=== PATIENT | female | born 2000 | race Two or more races ===

== ENCOUNTER 2019-12-13 10:48 | Observation (INO) | payer MEDICAID, OTHER ==
[~2019-12-13] VITALS: Ht 162.6 cm; Wt 98.4 kg
[2019-12-13 11:32] LABS: Basophils # (auto) 0 10 ^3/uL (0-0.2); Basophils % (auto) 0.4 % (0.0-2.0); Eosinophils # (auto) 0.1 10 ^3/uL (0-0.8); Mean Corpuscular Volume 71.7 fL (80.0-100.0); Monocytes # (auto) 0.5 10 ^3/uL (0-1.3); White Blood Cell 6.6 10^3/uL (4.4-10.8)
[2019-12-13 11:34] LABS: Hemoglobin 9.9 g/dL (12.2-16.2); Lymphocytes # (auto) 1.1 10 ^3/uL (0.4-5.4); Mean Corpuscular Hemoglobin 22.8 pg (28.0-32.0); Mean Corpuscular Hgb Conc. 31.8 g/dL (32.0-36.0); Monocytes % (auto) 7.9 % (0.0-12.0); Neutrophils # (auto) 4.8 10 ^3/uL (1.6-8.6); Neutrophils % (auto) 73.7 % (37.0-80.0); Nucleated Red Blood Cells % 0.1 %; Platelet Count (auto) 232 10^3/uL (140-450); Red Blood Cells 4.32 10^6/uL (4.0-5.20); Red Cell Distribution Width 19.2 % (11.8-14.3)
[2019-12-13] MEDS ORDERED: FOLI400T15 PO (11:37)
[2019-12-13] MEDS ORDERED: PREN-96 PO (11:37)
[2019-12-13 11:50] LABS: INR 0.9 (0.9-1.15); Partial Thromboplastin Time 24.2 sec (23.64-32.05)
[2019-12-13 11:55] LABS: Albumin 2.3 g/dL (3.4-5.0); Calcium 8.4 mg/dL (8.5-10.1); Potassium 4.7 mmol/L (3.5-5.1)
[2019-12-13 11:59] LABS: BUN/Creatinine Ratio 24.6; Bilirubin, Total 0.2 mg/dL (0.2-1.0); Total Protein 6.5 g/dL (6.4-8.2); Uric Acid 5.2 mg/dL (2.6-6.0)
[2019-12-13 12:15] LABS: Urine Bacteria FEW /hpf (None Seen); Urine Blood Negative /uL (Negative); Urine Mucus FEW (None Seen); Urine Specific Gravity 1.029 (1.001-1.035); Urine WBC 51 /hpf (0 - 5)
[2019-12-13] MEDS ORDERED: BETAMETHASONE ACET (6MG/ML) 5ML VIAL IM ONE (13:00)
== END 2019-12-13 13:35 | disposition home or self-care (01) | DRG 566 ==
LOC: LDRP 10:48
PROVIDERS: ADMIT Specialist; ATTEND Specialist
DX: O13.3 Gestational [pregnancy-induced] hypertension without significant proteinuria, third trimester (principal); Z3A.37 37 weeks gestation of pregnancy
CPT/HCPCS: 36415; 59025; 80053; 81001; 81002; 84550; 85025; 85610; 85730; G0378; J0702

== ENCOUNTER 2019-12-16 09:20 | Inpatient (IN) | payer MEDICAID ==
[~2019-12-16] VITALS: Ht 162.6 cm; Wt 97.5 kg
[~2019-12-16 09:20] MED LIST: FOLI400T15 PO; PREN-96 PO
[2019-12-16 10:23] LABS: Basophils # (auto) 0 10 ^3/uL (0-0.2); Eosinophils # (auto) 0.1 10 ^3/uL (0-0.8); Eosinophils % (auto) 0.9 % (0.0-7.0); Hemoglobin 9.8 g/dL (12.2-16.2); Monocytes # (auto) 0.6 10 ^3/uL (0-1.3); Neutrophils # (auto) 4.4 10 ^3/uL (1.6-8.6)
[2019-12-16 10:24] LABS: Basophils % (auto) 0.3 % (0.0-2.0); Hematocrit 31.5 % (36.0-46.0); Lymphocytes # (auto) 1.2 10 ^3/uL (0.4-5.4); Lymphocytes % (auto) 19.2 % (10.0-50.0); Mean Corpuscular Hemoglobin 22.7 pg (28.0-32.0); Mean Corpuscular Hgb Conc. 31.3 g/dL (32.0-36.0); Mean Corpuscular Volume 72.6 fL (80.0-100.0); Monocytes % (auto) 9.6 % (0.0-12.0); Platelet Count (auto) 200 10^3/uL (140-450); Red Blood Cells 4.34 10^6/uL (4.0-5.20); White Blood Cell 6.4 10^3/uL (4.4-10.8)
[2019-12-16 10:27] LABS: Red Cell Distribution Width 20.2 % (11.8-14.3)
[2019-12-16 10:28] LABS: Urine Bacteria FEW /hpf (None Seen); Urine Blood Negative /uL (Negative); Urine Mucus FEW (None Seen); Urine WBC 2 /hpf (0 - 5)
[2019-12-16 10:44] LABS: Albumin 2.3 g/dL (3.4-5.0); Calcium 8.3 mg/dL (8.5-10.1); Potassium 4.4 mmol/L (3.5-5.1)
[2019-12-16 10:47] LABS: BUN/Creatinine Ratio 17.7; Bilirubin, Total 0.2 mg/dL (0.2-1.0); Total Protein 6.5 g/dL (6.4-8.2); Uric Acid 5.3 mg/dL (2.6-6.0)
[2019-12-16 10:54] LABS: Protein, Urine 333.4 mg/dL (0.0-11.9)
[2019-12-16 10:55] LABS: 24 Hr. Total Protein, Urine 9168.5 mg/24 Hr (<149.1)
[2019-12-16 11:06] LABS: INR 0.92 (0.9-1.15); Partial Thromboplastin Time 23.7 sec (23.64-32.05)
[2019-12-16] MEDS ORDERED: LACT. RINGERS/OXYTOCIN 20UNITS 1,000 ML IV SCH (11:28)
[2019-12-16] MEDS ORDERED: CARBOPROST TROMETHAMINE 250 MCG/1ML VIAL IM PRN (11:30)
[2019-12-16] MEDS ORDERED: WITCH HAZEL-GLYCERIN PAD TOP PRN (11:30)
[2019-12-16] MEDS ORDERED: PHISODERM TOP SOLN 240ML BTL TOP PRN (11:30)
[2019-12-16] MEDS ORDERED: LIDOCAINE 2%HCL (LOCAL ANESTH.) INJ 20ML MDV ID PRN (11:30)
[2019-12-16] MEDS ORDERED: DERMOPLAST 60ML BOTTLE TOP PRN (11:30)
[2019-12-16] MEDS: LACTATED RINGER'S 1,000 ML IV SCH ×2 (11:45→19:28)
[2019-12-16 11:54] LABS: Amphetamine Screen, Urine NEGATIVE (NEGATIVE); Barbiturate Scree,Urine NEGATIVE (NEGATIVE); Benzodiazephine Screen, Urine NEGATIVE (NEGATIVE); Cannabinoid Screen, Urine NEGATIVE (NEGATIVE); Cocaine Screen, Urine NEGATIVE (NEGATIVE); Opiate Scree,Urine NEGATIVE (NEGATIVE); Phencyclidine Screen, Urine NEGATIVE (NEGATIVE)
[2019-12-16] MEDS ORDERED: PENICILLIN G POT 5MIL/D5 50ML 50 ML IV ONE (12:00)
[2019-12-16] MEDS: miSOPROStol 50 MCG per PRE-CUT 1/2 TAB PO PRN ×3 (12:20→20:15)
[2019-12-16] MEDS: PENICILLIN G POTASSIUM 2,500,000 UNITS in D5W 5% 50 ML IV SCH ×2 (16:00→20:02)
[2019-12-17] MEDS: PENICILLIN G POTASSIUM 2,500,000 UNITS in D5W 5% 50 ML IV SCH ×2 (00:19→04:43)
[2019-12-17] MEDS ORDERED: LACT. RINGERS/OXYTOCIN 20UNITS 1,000 ML IV SCH (00:40)
[2019-12-17] MEDS ORDERED: LACTATED RINGER'S 1,000 ML IV ONE (00:43)
[2019-12-17] MEDS ORDERED: NALOXONE HCL 0.4 MG/ML VIAL IV ONE ×2 (00:45→02:15)
[2019-12-17] MEDS ORDERED: TERBUTALINE SULFATE 1 MG/ML 1ML VIAL SC ONE (00:45)
[2019-12-17] MEDS ORDERED: ePHEDrine SULFATE 50 MG/ML AMP IV ONE ×2 (00:45→02:15)
[2019-12-17] MEDS ORDERED: fentaNYL 200mCg/100ml W ROPIVA 100 ML EPI SCH ×3 (00:45→02:15)
[2019-12-17] MEDS ORDERED: SODIUM CHLORIDE 0.9% 500 ML IV PRN (02:14)
[2019-12-17] MEDS ORDERED: BUTORPHANOL TARTRATE 2 MG/1 ML VIAL IV PRN (06:30)
[2019-12-17] MEDS ORDERED: BUTORPHANOL TARTRATE 2 MG/1 ML VIAL IM ONE (06:30)
[2019-12-17] MEDS ORDERED: miSOPROStol 100 mcg TAB ONE (09:02)
[2019-12-17] MEDS ORDERED: CARBOPROST TROMETHAMINE 250 MCG/1ML VIAL IM ONE (09:02)
[2019-12-17] MEDS ORDERED: miSOPROStol 50 MCG per PRE-CUT 1/2 TAB PR PRN (10:00)
[2019-12-17] MEDS ORDERED: miSOPROStol 50 MCG per PRE-CUT 1/2 TAB SL PRN (10:00)
[2019-12-17 13:18] VITALS: BP 142/77
[2019-12-17] MEDS: ceFAZolin 1GM/50ML 50 ML IV SCH (13:56)
[2019-12-17] MEDS ORDERED: IBUPROFEN 600 MG TAB PO PRN (14:30)
[2019-12-17 15:00] VITALS: BP 124/88
[2019-12-17] MEDS: ACETAMINOPHEN 325 MG TAB PO PRN (15:04)
[2019-12-17 18:30] VITALS: BP 128/68
[2019-12-17 23:30] VITALS: BP 120/65
[2019-12-18] MEDS: ceFAZolin 1GM/50ML 50 ML IV SCH ×2 (01:39→09:47)
[2019-12-18] MEDS: ACETAMINOPHEN 325 MG TAB PO PRN (01:44)
[2019-12-18 03:30] VITALS: BP 127/60
[2019-12-18 06:32] VITALS: BP 122/68
[2019-12-18 10:42] VITALS: BP 132/77
[2019-12-18 15:30] VITALS: BP 134/87
[2019-12-18 19:00] VITALS: BP 130/64
[2019-12-18 23:00] VITALS: BP 131/77
[2019-12-19 03:00] VITALS: BP 128/70
[2019-12-19 06:30] VITALS: BP 136/78
[2019-12-19 10:41] VITALS: BP 138/77
== END 2019-12-19 10:48 | disposition home or self-care (01) | DRG 560 ==
LOC: LDRP 09:20 → OBSVTOIN 11:24 → LDRP 11:25
PROVIDERS: ADMIT Obstetrics & Gynecology; ATTEND Obstetrics & Gynecology
PROC: 10E0XZZ Delivery of Products of Conception, External Approach (ICD-10-PCS; principal; 2019-12-17)
PROC: 0KQM0ZZ Repair Perineum Muscle, Open Approach (ICD-10-PCS; 2019-12-17)
DX: O14.94 Unspecified pre-eclampsia, complicating childbirth (principal); K83.1 Obstruction of bile duct; O12.14 Gestational proteinuria, complicating childbirth; O26.62 Liver and biliary tract disorders in childbirth; Z37.0 Single live birth; Z3A.37 37 weeks gestation of pregnancy; Z11.59 Encounter for screening for other viral diseases; O70.1 Second degree perineal laceration during delivery; O69.81X0 Labor and delivery complicated by cord around neck, without compression, not applicable or unspecified
CPT/HCPCS: 36415; 59025; 59409; 62282; 76818; 80053; 80307; 81001; 81002; 84112; 84156; 84550; 85025; 85610; 85730; 86592; 86850; 86900; 86901; 96365; 96366; G0378; J0690; J2540; J2590; J7060

== ENCOUNTER 2020-11-05 15:31 | Inpatient (IN) | payer MEDICAID ==
[~2020-11-05] VITALS: Ht 165.1 cm; Wt 81.3 kg
[2020-11-05 16:06] LABS: Urine Bacteria FEW /hpf (None Seen); Urine Blood Negative /uL (Negative); Urine Mucus FEW (None Seen); Urine Specific Gravity 1.033 (1.001-1.035); Urine WBC 4 /hpf (0 - 5)
[2020-11-05] MEDS ORDERED: SODIUM CHLORIDE 0.9% 1,000 ML IV ONE ×2 (16:45→20:45)
[2020-11-05] MEDS ORDERED: ONDANSETRON HCL 4 MG/2 ML VIAL IV ONE ×2 (16:45→20:45)
[2020-11-05 17:33] LABS: Basophils # (auto) 0 10 ^3/uL (0-0.2); Eosinophils # (auto) 0.1 10 ^3/uL (0-0.8); Monocytes # (auto) 0.3 10 ^3/uL (0-1.3)
[2020-11-05 17:36] LABS: Basophils % (auto) 0.8 % (0.0-2.0); Eosinophils % (auto) 1.5 % (0.0-7.0); Hematocrit 38.5 % (36.0-46.0); Hemoglobin 12.5 g/dL (12.2-16.2); Lymphocytes % (auto) 22.9 % (10.0-50.0); Mean Corpuscular Hemoglobin 24.7 pg (28.0-32.0); Mean Corpuscular Hgb Conc. 32.5 g/dL (32.0-36.0); Monocytes % (auto) 6.8 % (0.0-12.0); Neutrophils # (auto) 3.1 10 ^3/uL (1.6-8.6); Platelet Count (auto) 285 10^3/uL (140-450); Red Blood Cells 5.07 10^6/uL (4.0-5.20); Red Cell Distribution Width 15.6 % (11.8-14.3); White Blood Cell 4.6 10^3/uL (4.4-10.8)
[2020-11-05 17:54] LABS: Albumin 3.7 g/dL (3.4-5.0); Anion Gap 7 (5-15); Blood Urea Nitrogen 11 mg/dL (7-18); Calcium 8.6 mg/dL (8.5-10.1); Carbon Dioxide 22 mmol/L (21-32); Chloride 112 mmol/L (98-107); Glucose 88 mg/dL (74-106); Lipase 80 U/L (73-393); Magnesium 2.3 mg/dL (1.6-2.6); Potassium 3.7 mmol/L (3.5-5.1); Sodium 141 mmol/L (136-145)
[2020-11-05 18:03] LABS: Alanine Aminotransferase 854 U/L (13-56); Alkaline Phosphatase 137 U/L (45-117); Aspartate Aminotransferase 741 U/L (15-37); BUN/Creatinine Ratio 14.5; Bilirubin, Total 1.8 mg/dL (0.2-1.0); GFR African American 124 mL/min; GFR Non-African American 102 mL/min; Total Protein 7.1 g/dL (6.4-8.2)
[2020-11-05 18:04] LABS: INR 1.07 (0.9-1.15); Partial Thromboplastin Time 24.4 sec (23.0-31.2)
[2020-11-05] MEDS ORDERED: MORPHINE SULF INJ 2 MG/ML SYRINGE 1ML IV ONE (20:45)
[2020-11-05] MEDS ORDERED: cefTRIAXone 1GM/50ML D5W 50 ML IV ONE (21:00)
[2020-11-05] MEDS ORDERED: ONDANSETRON HCL 4 MG/2 ML VIAL IV PRN (21:30)
[2020-11-05] MEDS ORDERED: MORPHINE SULF INJ 2 MG/ML SYRINGE 1ML IV PRN (21:30)
[2020-11-05 23:00] VITALS: BP 103/53
[2020-11-05] MEDS: D5W/SOD CHL 0.45% 1,000 ML IV SCH (23:23)
[2020-11-06 05:00] VITALS: BP 96/80
[2020-11-06 05:33] LABS: Basophils # (auto) 0 10 ^3/uL (0-0.2); Lymphocytes # (auto) 1.7 10 ^3/uL (0.4-5.4); Monocytes # (auto) 0.4 10 ^3/uL (0-1.3); Nucleated Red Blood Cells % 0.2 %
[2020-11-06 05:35] LABS: Basophils % (auto) 0.9 % (0.0-2.0); Eosinophils # (auto) 0.3 10 ^3/uL (0-0.8); Eosinophils % (auto) 6.1 % (0.0-7.0); Hematocrit 38.2 % (36.0-46.0); Hemoglobin 12.7 g/dL (12.2-16.2); Lymphocytes % (auto) 37.8 % (10.0-50.0); Mean Corpuscular Hemoglobin 25.2 pg (28.0-32.0); Mean Corpuscular Hgb Conc. 33.2 g/dL (32.0-36.0); Mean Corpuscular Volume 75.7 fL (80.0-100.0); Monocytes % (auto) 9.5 % (0.0-12.0); Neutrophils % (auto) 45.7 % (37.0-80.0); Platelet Count (auto) 256 10^3/uL (140-450); Red Blood Cells 5.05 10^6/uL (4.0-5.20); Red Cell Distribution Width 15.7 % (11.8-14.3); White Blood Cell 4.5 10^3/uL (4.4-10.8)
[2020-11-06 05:52] LABS: Albumin 3.5 g/dL (3.4-5.0); Calcium 8.7 mg/dL (8.5-10.1)
[2020-11-06 05:56] LABS: BUN/Creatinine Ratio 11.6; Bilirubin, Total 1.6 mg/dL (0.2-1.0); Total Protein 6.9 g/dL (6.4-8.2)
[2020-11-06] MEDS: D5W/SOD CHL 0.45% 1,000 ML IV SCH ×2 (07:30→17:30)
[2020-11-06 09:00] VITALS: BP 101/60
[2020-11-06 12:30] VITALS: BP 108/56
[2020-11-06 16:25] VITALS: BP 102/54
[2020-11-06 21:46] VITALS: BP 108/58
== END 2020-11-07 00:55 | disposition short-term general hospital (02) ==
LOC: ER 15:31 → OVERFLOW 21:20 → WEST WING 22:45
PROVIDERS: ADMIT Hospitalist; ATTEND Hospitalist
DX: K80.70 Calculus of gallbladder and bile duct without cholecystitis without obstruction (principal); F41.9 Anxiety disorder, unspecified; N39.0 Urinary tract infection, site not specified; Z20.822 Contact with and (suspected) exposure to COVID-19; R74.01 Elevation of levels of liver transaminase levels
CPT/HCPCS: 36415; 74176; 76705; 78226; 80053; 81001; 81025; 82140; 83605; 83690; 83735; 84484; 84702; 85025; 85610; 85730; 87426; 96361; 96374; G0378; J0696; J2405

== ENCOUNTER 2020-12-03 10:19 | Inpatient (IN) | payer MEDICAID ==
[~2020-12-03] VITALS: Ht 162.6 cm; Wt 85.3 kg
[2020-12-03] MEDS ORDERED: PANTOPRAZOLE 40 MG/10 ML VIAL INJ IV STA (10:23)
[2020-12-03 11:12] LABS: Basophils # (auto) 0.1 10 ^3/uL (0-0.2); Basophils % (auto) 0.7 % (0.0-2.0); Eosinophils # (auto) 0.2 10 ^3/uL (0-0.8); Eosinophils % (auto) 2.6 % (0.0-7.0); Lymphocytes # (auto) 1.8 10 ^3/uL (0.4-5.4); Neutrophils # (auto) 5.1 10 ^3/uL (1.6-8.6); Nucleated Red Blood Cells % 0.1 %
[2020-12-03 11:14] LABS: Hematocrit 38.3 % (36.0-46.0); Hemoglobin 12.4 g/dL (12.2-16.2); Lymphocytes % (auto) 23.4 % (10.0-50.0); Mean Corpuscular Hemoglobin 24.7 pg (28.0-32.0); Mean Corpuscular Hgb Conc. 32.5 g/dL (32.0-36.0); Monocytes # (auto) 0.4 10 ^3/uL (0-1.3); Monocytes % (auto) 5.4 % (0.0-12.0); Neutrophils % (auto) 67.9 % (37.0-80.0); Red Blood Cells 5.04 10^6/uL (4.0-5.20); Red Cell Distribution Width 15.4 % (11.8-14.3); White Blood Cell 7.5 10^3/uL (4.4-10.8)
[2020-12-03 11:15] LABS: Albumin 3.7 g/dL (3.4-5.0); Calcium 8.7 mg/dL (8.5-10.1)
[2020-12-03 11:18] LABS: BUN/Creatinine Ratio 18.8; Bilirubin, Total 0.3 mg/dL (0.2-1.0); Total Protein 7.4 g/dL (6.4-8.2)
[2020-12-03] MEDS ORDERED: MORPHINE SULFATE INJECTION 2 MG/ML SYRG IV PRN (12:00)
[2020-12-03] MEDS ORDERED: ONDANSETRON HCL 4 MG/2 ML VIAL IV PRN (12:00)
[2020-12-03] MEDS: SODIUM CHLORIDE 0.9% 1,000 ML IV SCH ×2 (12:51→18:58)
[2020-12-03 12:59] LABS: Urine Bacteria NONE SEEN /hpf (None Seen); Urine Blood Negative /uL (Negative); Urine Specific Gravity 1.018 (1.001-1.035); Urine WBC 1 /hpf (0 - 5)
[2020-12-03 13:38] LABS: INR 1.04 (0.9-1.15)
[2020-12-03 17:32] VITALS: BP 111/62
[2020-12-03] MEDS: PIPERACILLIN-TAZOB 3.375GM 100 ML IV SCH ×2 (18:58→23:54)
[2020-12-03 22:00] VITALS: BP 104/58
[2020-12-04 05:00] VITALS: BP 98/52
[2020-12-04] MEDS: PIPERACILLIN-TAZOB 3.375GM 100 ML IV SCH ×2 (06:19→13:04)
[2020-12-04] MEDS: SODIUM CHLORIDE 0.9% 1,000 ML IV SCH (08:00)
[2020-12-04] MEDS ORDERED: BUPIVACAINE 0.25% INJ 50ML VIAL ONE (08:17)
[2020-12-04] MEDS ORDERED: LIDOCAINE W/ EPINEPHRINE 1% 20ML VIAL ONE ×2 (08:17→09:01)
[2020-12-04] MEDS ORDERED: MIDAZOLAM HCL 2MG/2ML 2ml VIAL (1mg/ml) ONE (08:45)
[2020-12-04] MEDS ORDERED: HYDROmorphone HCL 2 MG/ML VL ONE (08:45)
[2020-12-04] MEDS ORDERED: fentaNYL CITRATE 100 MCG/2 ML VL ONE (08:45)
[2020-12-04] MEDS ORDERED: ROCURONIUM 10MG/ML 10ML VIAL IV ONE (08:45)
[2020-12-04] MEDS ORDERED: GLYCOPYRROLATE 0.2 MG/ML 1ML VIAL ONE (08:46)
[2020-12-04] MEDS ORDERED: KETOROLAC TROMETH 30 MG/ML 1ML VIAL ONE (08:46)
[2020-12-04] MEDS ORDERED: ONDANSETRON HCL 4 MG/2 ML VIAL ONE (08:46)
[2020-12-04] MEDS ORDERED: PROPOFOL 10 MG/ML 20 ML IV ONE (08:46)
[2020-12-04] MEDS ORDERED: LIDOCAINE 2% (LOCAL ANESTH.) PF 5ml SDV ONE (08:46)
[2020-12-04 09:00] VITALS: BP 103/45
[2020-12-04] MEDS ORDERED: SUCCINYLCHOLINE CHLORIDE 20 MG/ML 10ML VIAL IV ONE (09:02)
[2020-12-04] MEDS ORDERED: DexAMETHasone SOD PHOS 10MG/1ML VIAL INJ IV ONE (09:02)
[2020-12-04] MEDS ORDERED: ONDANSETRON HCL 4 MG/2 ML VIAL IV PRN (10:30)
[2020-12-04] MEDS ORDERED: HYDROcodone-ACET 5/325MG TAB PO PRN (10:30)
[2020-12-04] MEDS ORDERED: HYDROmorphone HCL 2 MG/ML VL IV PRN (10:30)
[2020-12-04] MEDS ORDERED: FAMOTIDINE (10MG/ML) 2ML VL IV ONE (10:39)
[2020-12-04 12:57] VITALS: BP 114/65
[2020-12-04] MEDS ORDERED: IBUP800T26 PO (16:28)
[2020-12-04] MEDS ORDERED: HYDR-4902 PO (16:28)
[2020-12-04] MEDS ORDERED: DOCU-94 PO (16:28)
[2020-12-04 17:02] VITALS: BP 114/65
[2020-12-04 17:37] VITALS: BP 108/56
== END 2020-12-04 17:34 | disposition home health service (06) | DRG 263 ==
LOC: EDBD 10:19 → ER 10:19 → OVERFLOW 11:46 → EAST 15:50
PROVIDERS: ADMIT Internal Medicine; ATTEND Internal Medicine
PROC: 0FT44ZZ Resection of Gallbladder, Percutaneous Endoscopic Approach (ICD-10-PCS; principal; 2020-12-04 09:02)
DX: K80.20 Calculus of gallbladder without cholecystitis without obstruction (principal); E66.01 Morbid (severe) obesity due to excess calories; K82.8 Other specified diseases of gallbladder; Z20.822 Contact with and (suspected) exposure to COVID-19; Z68.32 Body mass index [BMI] 32.0-32.9, adult
CPT/HCPCS: 36415; 76705; 80053; 81001; 81025; 83690; 85025; 85610; 86850; 86900; 86901; 87081; 87426; 96361; 96365; C9113; G0378; J0330; J1100; J1885; J2001; J2250; J2405; J2543; J2704; J3490

== ENCOUNTER 2021-05-22 04:25 | Emergency (ER) | payer MEDICAID ==
[~2021-05-22] VITALS: Ht 165.1 cm; Wt 90.7 kg
[~2021-05-22 04:25] MED LIST changes: +DOCU-94 PO; -FOLI400T15 PO; +HYDR-4902 PO; +IBUP800T26 PO; -PREN-96 PO
[2021-05-22 07:20] VITALS: BP 119/63
== END 2021-05-22 07:35 | disposition home or self-care (01) ==
LOC: ER 04:25
DX: H66.92 Otitis media, unspecified, left ear (principal)

== ENCOUNTER 2022-11-13 16:46 | Emergency (ER) | payer MEDICAID ==
[~2022-11-13] VITALS: Ht 162.6 cm; Wt 101.6 kg
[2022-11-13 17:25] LABS: Basophils # (auto) 0 10 ^3/uL (0-0.2); Eosinophils # (auto) 0.1 10 ^3/uL (0-0.8); Hemoglobin 14.1 g/dL (12.2-16.2); Lymphocytes # (auto) 1.3 10 ^3/uL (0.4-5.4); Mean Corpuscular Volume 76.7 fL (80.0-100.0); Monocytes # (auto) 0.4 10 ^3/uL (0-1.3); Nucleated Red Blood Cells % 0.1 %; Red Cell Distribution Width 15.4 % (11.8-14.3)
[2022-11-13 17:27] LABS: Basophils % (auto) 0.5 % (0.0-2.0); Eosinophils % (auto) 1.2 % (0.0-7.0); Hematocrit 42.3 % (36.0-46.0); Lymphocytes % (auto) 18.7 % (10.0-50.0); Mean Corpuscular Hemoglobin 25.5 pg (28.0-32.0); Mean Corpuscular Hgb Conc. 33.3 g/dL (32.0-36.0); Monocytes % (auto) 5.9 % (0.0-12.0); Neutrophils % (auto) 73.7 % (37.0-80.0); Red Blood Cells 5.51 10^6/uL (4.0-5.20); White Blood Cell 6.8 10^3/uL (4.4-10.8)
[2022-11-13 17:57] LABS: Albumin 3.8 g/dL (3.4-5.0); Calcium 8.5 mg/dL (8.5-10.1); Potassium 3.5 mmol/L (3.5-5.1)
[2022-11-13 18:00] LABS: BUN/Creatinine Ratio 15.8 (10.0-20.0); Bilirubin, Total 0.8 mg/dL (0.2-1.0); Total Protein 7.8 g/dL (6.4-8.2)
[2022-11-13] MEDS ORDERED: ONDANSETRON ODT 4 MG TAB PO ONE (19:00)
[2022-11-13] MEDS ORDERED: ACETAMINOPHEN 500 MG TAB PO ONE (20:00)
[2022-11-13] MEDS ORDERED: SODIUM CHLORIDE 0.9% 1,000 ML IV ONE (20:00)
[2022-11-13 20:54] VITALS: BP 115/76
[2022-11-13 21:32] LABS: Urine Bacteria FEW /hpf (None Seen); Urine Blood Negative /uL (Negative); Urine Mucus FEW (None Seen); Urine Specific Gravity 1.039 (1.001-1.035); Urine WBC 49 /hpf (0 - 5)
[2022-11-13] MEDS ORDERED: cefTRIAXone 1GM/50ML D5W 50 ML IV ONE (21:45)
[2022-11-13] MEDS ORDERED: ACET1CAP14 PO (21:47)
[2022-11-13] MEDS ORDERED: CEPH-510 PO (21:47)
[2022-11-13] MEDS ORDERED: ONDA-144 PO (21:50)
== END 2022-11-13 22:19 | disposition home or self-care (01) ==
LOC: ER 16:46
DX: N39.0 Urinary tract infection, site not specified (principal); K76.0 Fatty (change of) liver, not elsewhere classified; R10.2 Pelvic and perineal pain; Z87.440 Personal history of urinary (tract) infections
CPT/HCPCS: 36415; 74176; 80053; 81001; 83690; 84702; 85025; 96361; 96374; 99285; J0696; J7030; Q0162

== ENCOUNTER 2023-03-11 10:41 | Emergency (ER) | payer MEDICAID ==
[~2023-03-11] VITALS: Ht 165.1 cm; Wt 99.0 kg
[~2023-03-11 10:41] MED LIST changes: +ACET1CAP14 PO; +CEPH-510 PO; +IBUP-1455 PO; -IBUP800T26 PO; +ONDA-144 PO
[2023-03-11] MEDS ORDERED: PROM1SOL4 PO (11:54)
[2023-03-11] MEDS ORDERED: AZIT500T66 PO (11:54)
[2023-03-11 12:00] VITALS: BP 120/54; PULSE 75; RESP 16; TEMP 97.7; O2SAT 96
== END 2023-03-11 12:09 | disposition home or self-care (01) ==
LOC: ER 10:41
DX: J03.90 Acute tonsillitis, unspecified (principal); J06.9 Acute upper respiratory infection, unspecified

== ENCOUNTER 2023-05-20 15:09 | Emergency (ER) | payer MEDICAID ==
[~2023-05-20] VITALS: Ht 162.6 cm; Wt 68.2 kg
[~2023-05-20 15:09] MED LIST changes: +AZIT500T66 PO; +PROM1SOL4 PO
[2023-05-20 15:31] LABS: Basophils # (auto) 0 10 ^3/uL (0-0.2); Basophils % (auto) 0.2 % (0.0-2.0); Eosinophils # (auto) 0.2 10 ^3/uL (0-0.8); Eosinophils % (auto) 2.7 % (0.0-7.0); Hematocrit 40.6 % (36.0-46.0); Hemoglobin 13.4 g/dL (12.2-16.2); Lymphocytes # (auto) 1.9 10 ^3/uL (0.4-5.4); Lymphocytes % (auto) 22.3 % (10.0-50.0); Mean Corpuscular Hemoglobin 25.6 pg (28.0-32.0); Mean Corpuscular Hgb Conc. 32.9 g/dL (32.0-36.0); Mean Corpuscular Volume 77.8 fL (80.0-100.0); Monocytes # (auto) 0.5 10 ^3/uL (0-1.3); Monocytes % (auto) 5.4 % (0.0-12.0); Neutrophils % (auto) 69.4 % (37.0-80.0); Nucleated Red Blood Cells % 0.2 %; Red Blood Cells 5.22 10^6/uL (4.0-5.20); Red Cell Distribution Width 15.1 % (11.8-14.3); White Blood Cell 8.6 10^3/uL (4.4-10.8)
[2023-05-20 15:47] LABS: INR 1.05 (0.9-1.15); Partial Thromboplastin Time 29.2 SEC (24.5-34.5)
[2023-05-20 15:50] LABS: Alanine Aminotransferase 124 U/L (7-40); Albumin 4.6 g/dL (3.2-4.8); Alkaline Phosphatase 123 U/L (46-116); Anion Gap 7 (5-15); Aspartate Aminotransferase 144 U/L (13-40); BUN/Creatinine Ratio 17.8 (10.0-20.0); Bilirubin, Total 0.6 mg/dL (0.2-1.0); Blood Urea Nitrogen 13 mg/dL (9-23); Calcium 8.7 mg/dL (8.7-10.4); Carbon Dioxide 25 mmol/L (20-30); Chloride 105 mmol/L (98-107); Glucose 89 mg/dL (74-106); Magnesium 1.8 mg/dL (1.6-2.6); Potassium 3.7 mmol/L (3.5-5.1); Sodium 137 mmol/L (136-145)
[2023-05-20 15:51] LABS: Total Protein 7.6 g/dL (5.7-8.2)
[2023-05-20 17:16] VITALS: BP 108/57; PULSE 90; RESP 16; TEMP 98.7; O2SAT 98
== END 2023-05-20 17:27 | disposition home or self-care (01) ==
LOC: ER 15:09
DX: R07.89 Other chest pain (principal); Z87.891 Personal history of nicotine dependence; Z79.1 Long term (current) use of non-steroidal anti-inflammatories (NSAID); Z79.899 Other long term (current) drug therapy
CPT/HCPCS: 36415; 71045; 80053; 83735; 84484; 85025; 85610; 85730; 93005

== ENCOUNTER 2023-12-08 11:05 | Emergency (ER) | payer MEDICAID ==
[~2023-12-08] VITALS: Ht 162.6 cm; Wt 101.8 kg
[2023-12-08 14:49] LABS: Urine Bacteria None Seen /hpf (None Seen)
[2023-12-08 15:24] LABS: Urine Blood Negative /uL (Negative); Urine Clarity Turbid (Clear); Urine Color Yellow (Yellow); Urine Mucus FEW (None Seen); Urine Protein, UAD TRACE (Negative); Urine Urobilinogen Normal (Negative); Urine WBC 18 /hpf (0 - 5)
[2023-12-08 15:30] VITALS: BP 124/82; PULSE 99; RESP 18; TEMP 98.3; O2SAT 98
[2023-12-08] MEDS ORDERED: CEPH500C PO (15:33)
== END 2023-12-08 15:30 | disposition home or self-care (01) ==
LOC: ER 11:05
DX: N39.0 Urinary tract infection, site not specified (principal)
CPT/HCPCS: 71045; 81001

== ENCOUNTER 2024-04-18 13:58 | Emergency (ER) | payer MEDICAID, OTHER ==
[~2024-04-18 13:58] MED LIST changes: +CEPH500C PO
[2024-04-18] MEDS ORDERED: IBUP-1454 PO (17:55)
== END 2024-04-18 16:04 | disposition left against medical advice (07) ==
LOC: ER 13:58
DX: R51.9 Headache, unspecified (principal); Z53.21 Procedure and treatment not carried out due to patient leaving prior to being seen by health care provider

== ENCOUNTER 2024-04-18 16:28 | Emergency (ER) | payer MEDICAID, OTHER ==
[~2024-04-18] VITALS: Ht 162.6 cm; Wt 98.5 kg
[2024-04-18] MEDS: KETOROLAC TROMETH 30 MG/ML 1ML VIAL IM ONE (17:30)
[2024-04-18] MEDS ORDERED: IBUP-1454 PO (17:55)
[2024-04-18 19:03] VITALS: BP 116/70; PULSE 85; RESP 18; O2SAT 100
== END 2024-04-18 19:04 | disposition home or self-care (01) ==
LOC: ER 16:28
DX: S43.402A Unspecified sprain of left shoulder joint, initial encounter (principal); Z88.6 Allergy status to analgesic agent; W18.09XA Striking against other object with subsequent fall, initial encounter; Y93.89 Activity, other specified; Y92.89 Other specified places as the place of occurrence of the external cause; Y99.8 Other external cause status
CPT/HCPCS: 73030; 96372; 99283; J1885

== ENCOUNTER 2024-05-16 21:45 | Inpatient (IN) | payer MEDICAID, OTHER ==
[~2024-05-16] VITALS: Ht 162.6 cm; Wt 97.7 kg
[~2024-05-16 21:45] MED LIST changes: +IBUP-1454 PO
[2024-05-16] MEDS: ALBUTEROL SULF 2.5 MG/0.5ML(0.5%) NEB SOLN NEB ONE (22:13)
[2024-05-16 22:20] LABS: Basophils # (auto) 0 10 ^3/uL (0-0.2); Basophils % (auto) 0.5 % (0.0-2.0); Eosinophils # (auto) 0.2 10 ^3/uL (0-0.8); Eosinophils % (auto) 2.2 % (0.0-7.0); Mean Corpuscular Volume 79.3 fL (80.0-100.0); Nucleated Red Blood Cells % 0.1 %; White Blood Cell 9.1 10^3/uL (4.4-10.8)
[2024-05-16 22:22] LABS: Hematocrit 44.8 % (36.0-46.0); Hemoglobin 14.7 g/dL (12.2-16.2); Lymphocytes # (auto) 3.8 10 ^3/uL (0.4-5.4); Lymphocytes % (auto) 42.2 % (10.0-50.0); Mean Corpuscular Hemoglobin 26.1 pg (28.0-32.0); Mean Corpuscular Hgb Conc. 32.9 g/dL (32.0-36.0); Monocytes # (auto) 0.7 10 ^3/uL (0-1.3); Monocytes % (auto) 7.3 % (0.0-12.0); Neutrophils # (auto) 4.4 10 ^3/uL (1.6-8.6); Neutrophils % (auto) 47.8 % (37.0-80.0); Platelet Count (auto) 393 10^3/uL (140-450); Red Blood Cells 5.65 10^6/uL (4.0-5.20); Red Cell Distribution Width 15.3 % (11.8-14.3)
[2024-05-16] MEDS: diphenhdrAMINE HCL 50 MG/1 ML VL IV ONE (22:23)
[2024-05-16] MEDS: FAMOTIDINE (10MG/ML) 2ML VL IV ONE (22:23)
[2024-05-16] MEDS: methylPREDNISolone SOD SUCC 125 MG/2 ML VL IV ONE (22:24)
[2024-05-16 22:32] VITALS: PULSE 90; RESP 14; TEMP 97.3; O2SAT 100
[2024-05-16 22:38] LABS: Alanine Aminotransferase 46 U/L (7-40); Albumin 4.1 g/dL (3.2-4.8); Alkaline Phosphatase 69 U/L (46-116); Anion Gap 11 (5-15); Aspartate Aminotransferase 33 U/L (13-40); BUN/Creatinine Ratio 9.4 (10.0-20.0); Bilirubin, Total 0.2 mg/dL (0.2-1.0); Blood Urea Nitrogen 11 mg/dL (9-23); Calcium 9.4 mg/dL (8.7-10.4); Carbon Dioxide 23 mmol/L (20-31); Chloride 109 mmol/L (98-107); Glucose 131 mg/dL (74-106); Potassium 3.9 mmol/L (3.5-5.1); Sodium 143 mmol/L (136-145); Total Protein 6.9 g/dL (5.7-8.2)
[2024-05-16] MEDS: SODIUM CHLORIDE 0.9% 1,000 ML IV ONE (23:09)
[2024-05-17] MEDS: SODIUM CHLORIDE 0.9% 1,000 ML IV ONE ×2 (00:14→02:23)
[2024-05-17] MEDS: ASPirin 325 MG TAB PO ONE (01:47)
[2024-05-17] MEDS ORDERED: ONDANSETRON HCL 4 MG/2 ML VIAL IV PRN (02:15)
[2024-05-17] MEDS ORDERED: diphenhdrAMINE HCL 25 MG CAP PO PRN (02:15)
[2024-05-17] MEDS ORDERED: TEMAZEPAM 15 MG CAP PO PRN (02:15)
[2024-05-17] MEDS ORDERED: NITROGLYCERIN 0.4 MG SL TAB SL PRN (02:15)
[2024-05-17] MEDS ORDERED: ACETAMINOPHEN 325 MG TAB PO PRN (02:15)
[2024-05-17] MEDS ORDERED: MORPHINE SULFATE INJ 2 MG/ml SYRG IV PRN (02:15)
[2024-05-17 07:31] VITALS: PULSE 78; RESP 18; O2SAT 98
[2024-05-17] MEDS: ASPirin 81 mg TAB PO SCH (10:12)
[2024-05-17] MEDS: FAMOTIDINE (10MG/ML) 2ML VL IV SCH (10:13)
[2024-05-17 16:50] VITALS: BP 108/64; PULSE 66; RESP 16; O2SAT 98
== END 2024-05-17 18:55 | disposition home or self-care (01) | DRG 811 ==
LOC: ER 21:45 → TELE 05-17 02:03
PROVIDERS: ADMIT Nurse Practitioner; ATTEND Student in an Organized Health Care Education/Training Program
DX: T88.6XXA Anaphylactic reaction due to adverse effect of correct drug or medicament properly administered, initial encounter (principal); N17.0 Acute kidney failure with tubular necrosis; I21.A1 Myocardial infarction type 2; I42.7 Cardiomyopathy due to drug and external agent; L50.8 Other urticaria; T39.1X5A Adverse effect of 4-Aminophenol derivatives, initial encounter; E66.9 Obesity, unspecified; Z90.49 Acquired absence of other specified parts of digestive tract; Z68.37 Body mass index [BMI] 37.0-37.9, adult; Z79.899 Other long term (current) drug therapy; Y84.8 Other medical procedures as the cause of abnormal reaction of the patient, or of later complication, without mention of misadventure at the time of the procedure; Y92.89 Other specified places as the place of occurrence of the external cause
CPT/HCPCS: 36415; 71045; 80053; 83036; 84443; 84484; 84702; 85025; 93005; 93306; 94640; G0378; J3490